=== PATIENT | male | born 1995 | race African-American/Black ===

== ENCOUNTER 2020-05-08 23:07 | Emergency (ER) | payer OTHER, SELFPAY ==
[2020-05-08 23:17] VITALS: BP 163/101; PULSE 87; RESP 17; TEMP 36.6; O2SAT 100
--- NOTE | 2020-05-09 00:38 | PC.NURSE ---
this rn went to pts room to assess, he asked this rn how long he will have to wait. this rn stated i cant give a definitive answer but we do have a full house. pt states well, i've already waited an hour and a half. i think im just going to go to urgent care in the morning. this rn explained to pt that he is able to come back if he feels he needs to. pt ambulated out of facility w/ no difficulties.
== END 2020-05-09 00:38 | disposition left against medical advice (07) ==
DX: Z53.21 Procedure and treatment not carried out due to patient leaving prior to being seen by health care provider (principal)
CPT/HCPCS: 99199

== ENCOUNTER 2020-09-30 06:36 | Emergency (ER) | payer OTHER, SELFPAY ==
[2020-09-30 06:54] VITALS: BP 165/100; PULSE 84; RESP 18; TEMP 36.1; O2SAT 100
--- NOTE | 2020-09-30 07:06 | ED.MALEGU ---
HPI - Male Genitourinary General Chief complaint: Urogenital-Male Stated complaint: UTI Time Seen by Provider: 09/30/20 07:05 Source: patient Mode of arrival: ambulatory Limitations: no limitations History of Present Illness HPI Narrative: Patient presents to the emergency department for evaluation of penile discharge that developed this morning. Patient reports penile discharge is white/yellow in color. He denies dysuria. No frequency. He has not noticed blood. He denies any other lesions. Patient denies fever or back pain. He denies history of testicular pain or current testicular pain. No current lesions. Patient is monogamous with one partner, they do not use barrier protection. Related Data Allergies Allergy/AdvReac Type Severity Reaction Status Date / Time blueberry Allergy Severe Swelling Verified 09/30/20 07:23 of Lip/Tongue/Throat Review of Systems Review of Systems: Narrative: CONSTITUTIONAL: Denies fever CARDIOVASCULAR: Denies chest pain RESPIRATORY: Denies cough or dyspnea. GASTROINTESTINAL: Denies abdominal pain SKIN: Denies rash MUSCULOSKELETAL: Denies back pain NEUROLOGIC: Denies headache FORMERLY [facility], 1928–1983 Past Medical History Medical History (Updated 09/30/20 @ 07:28 by Raquel So MD) Brain aneurysm Hypertension Surgical History Surgical History (Updated 09/30/20 @ 07:25 by Raquel So MD) H/O brain surgery Social History Social History (Updated 09/30/20 @ 07:25 by Raquel So MD) Smoking status: Never smoker Substance use: never Gender identity (if verbalized by the patient): Male Exam Narrative: Exam Narrative: GENERAL: Awake, alert, conversant HEAD: Normocephalic, atraumatic. EYES: PERRLA and EOMI. ENT: Nares clear, no rhinorrhea or epistaxis. Mucous membranes moist. NECK: Supple. CHEST: No respiratory distress, breathing even and non labored HEART: Regular rate, sinus rhythm ABDOMEN:Non distended, non tender : Penis is circumcised. Glans unremarkable. Small amount of white discharge present from urethra. No lesions or vesicles. Testes are non tender to palpation. No edema or erythema. No inguinal lymphadenopathy. EXTREMITIES: Normal range of motion. No edema. SKIN: Warm, dry, no rash. NEURO:No focal deficits. Alert and oriented x3 Course Vital Signs Vital signs: Vital Signs Temperature 36.1 C L 09/30/20 06:54 Pulse Rate 84 09/30/20 06:54 Respiratory Rate 18 09/30/20 06:54 Blood Pressure 165/100 H 09/30/20 06:54 Pulse Oximetry 100 09/30/20 06:54 Temperature 36.1 C L 09/30/20 06:54 Pulse Rate 84 09/30/20 06:54 Respiratory Rate 18 09/30/20 06:54 Blood Pressure 165/100 H 09/30/20 06:54 Pulse Oximetry 100 09/30/20 06:54 MDM - Male Genitourinary MDM Narrative Medical decision making narrative: Patient presented for 1 day of penile discharge. No other lesions. No testicular pain. No fever or back pain. The time of assessment, ABCs are intact, vital signs are stable. Patient is well-appearing. There are no lesions to the penis. No testicular pain. No testicular edema. No inguinal lymphadenopathy. The glans appears normal aside from a small amount of white discharge present. It is not thick but more serous in nature. Patient had chlamydia and gonorrhea testing as well as urinalysis. Patient agreed to empiric treatment for sexually transmitted infection. I did discuss with him about treatment of his partner, however he states he will talk with his partner pending his results. Patient to be discharged home on antibiotics. Differential Diagnosis Differential diagnosis: Likely urinary tract infection, urethritis and other (Slightly transmitted infection, chlamydia, gonorrhea) Medical Records Attestation: I reviewed the patient's medical records. Lab Data Labs: Lab Results 09/30/20 09/30/20 Range/Units 06:47 06:47 Urine Color Yellow (Yellow) Urine Appearance Clear (Clear) Urine pH 6.0 (5.0-9.
[2020-09-30 07:07] LABS: Add Urine Microscopic? YES; Appearance Urine Clear (Clear); Bilirubin Urine Negative (Negative); Blood Urine Negative (Negative); Color Urine Yellow (Yellow); Glucose Urine UA 1+ mg/dL (Negative); Ketones Urine Negative (Negative); Leukocyte Esterase Ur 1+ LEU/UL (Negative); Mucus Urine Rare /lpf; Nitrate Urine Negative (Negative); Protein Urine 1+ mg/dL (Negative); Specific Grav Ur 1.016 (1.001-1.035); Urobilinogen Urine Negative mg/dL (<2.0); WBC Urine 21-30 /hpf
[2020-09-30] MEDS: cefTRIAXone 250 MG VIAL IM (07:42)
[2020-09-30] MEDS: AZITHROMYCIN 250 MG TABLET 1000 MG PO (07:42)
[2020-09-30] MEDS: metroNIDAZOLE 250 MG TABLET 2000 MG PO (07:42)
[2020-09-30 07:49] VITALS: BP 118/75; PULSE 78; RESP 15; O2SAT 98
[2020-09-30] MEDS: LIDOCAINE HCL 1% LOCAL INJ 20 ML VIAL (07:49)
== END 2020-09-30 07:50 | disposition home or self-care (01) ==
PROVIDERS: Emergency Medicine; Emergency Provider Emergency Medicine
DX: N34.2 Other urethritis (principal)
CPT/HCPCS: 81001; 87086; 87491; 87591; 96372; 99283; A9270; J0696

== ENCOUNTER 2020-11-04 15:31 | Emergency (ER) | payer OTHER, SELFPAY ==
[2020-11-04 15:34] VITALS: BP 133/92; PULSE 99; RESP 16; TEMP 37.1; O2SAT 100
[2020-11-04 18:39] LABS: Basophils Absolute Auto 0.1 K/mm3 (0.0-0.1); Eosinophils Absolute Auto 0.1 K/mm3 (0-0.3); Eosinophils Percent Auto 2.4 % (0-4.4); Hematocrit 40.1 % (42.0-52.0); Immature Granulocyte Absolute 0.02 K/mm3 (0.00-0.031); Immature Granulocyte Percent A 0.3 % (0-0.5); Lymphocytes Percent Auto 35.4 % (18.3-44.2); Mean Corpuscular HGB Conc 34.9 g/dl (32-36); Mean Corpuscular Hemoglobin 24.2 pg (26-34); Mean Corpuscular Volume 69.4 fl (80-100); Mean Platelet Volume 9.4 fl (7.4-10.4); Monocytes Percent Auto 16.5 % (2.6-8.5); Neutrophils Absolute Auto 2.6 K/mm3 (1.3-6.7); Neutrophils Percent Auto 44.4 % (45.5-73.1); Platelet Count Result 281 k/mm3 (150-375); Red Blood Count 5.78 M/mm3 (4.6-6.20); Red Cell Distribution Width 12.5 % (11.5-14.5); White Blood Count 5.9 K/mm3 (4.5-10.0)
[2020-11-04 18:48] LABS: Atypical Lymphocytes Present; Platelet Estimate Adequate (Adequate)
[2020-11-04 18:53] LABS: Alanine Aminotransferase 55 U/L (4-50); Albumin Level 4.5 g/dL (3.5-5.1); Alkaline Phosphatase 123 U/L (38-126); Anion Gap 10 mmol/L (8-16); Aspartate Amino Transferase 33 U/L (17-59); Bilirubin,Total 1.2 mg/dL (0.2-1.3); Blood Urea Nitrogen 14 mg/dL (9-20); Calcium 9.8 mg/dL (8.4-10.2); Carbon Dioxide 27 mmol/L (22-30); Chloride 96 mmol/L (98-107); Estimated CRCL calculation 80 ml/min; Estimated Glomerular Filt Rate > 60; Glucose 445 mg/dL (75-110); Potassium 4.1 mmol/L (3.4-5.0); Sodium 133 mmol/L (137-145)
[2020-11-04 18:56] LABS: Amphetamine Screen Urine Negative (Negative); Barbiturate Screen Urine Negative (Negative); Benzodiazepines Screen Urine Negative (Negative); Cannabinoid Screen Urine Negative (Negative); Cocaine Screen Urine Negative (Negative); Methadone Screen Urine Negative (Negative); Opiate Screen Urine Negative (Negative); Phencyclidine Screen Urine Negative (Negative)
[2020-11-04 19:09] VITALS: BP 137/91; PULSE 98; RESP 16; O2SAT 100
--- NOTE | 2020-11-04 19:14 | ED.GENADULT ---
HPI - General Adult General Chief complaint: Headache Stated complaint: headache Time Seen by Provider: 11/04/20 17:43 Source: patient Mode of arrival: ambulatory Limitations: no limitations History of Present Illness HPI narrative: Patient is 25 years old -Citizen Of [place] male presents with intermittent jerking of the mouth when he is stressed or excited. Was seen by his family physician 2 days ago. Patient reports a lot of stress lately, did not start on any medication. Patient is a smoker, denies any alcohol or marijuana intake. Patient denies any fever, chills, nausea, vomiting, headache, vision abnormality, chest pain or shortness of breath. Related Data Allergies Allergy/AdvReac Type Severity Reaction Status Date / Time blueberry Allergy Severe Swelling Verified 11/04/20 15:37 of Lip/Tongue/Throat Review of Systems Review of Systems: Narrative: CONSTITUTIONAL: Denies fever, chills, or sweats. EYES: Denies visual changes, redness, or discharge. ENT: Denies rhinorrhea, congestion, sore throat, or otalgia. CARDIOVASCULAR: Denies chest pain, palpitations, or edema. RESPIRATORY: Denies cough or dyspnea. GASTROINTESTINAL: Denies abdominal pain, nausea, vomiting, or diarrhea. GENITOURINARY: Denies dysuria or hematuria. SKIN: Denies rash or itching. MUSCULOSKELETAL: Denies back pain, joint pain, or myalgia. NEUROLOGIC: Denies headache, numbness, or weakness. PSYCHIATRIC: Denies anxiety or depression. PMFSH Past Medical History Medical History (Updated 11/04/20 @ 20:48 by Osorio Mcmullen MD) Brain aneurysm Hypertension Surgical History Surgical History (Updated 09/30/20 @ 07:25 by Raquel So MD) H/O brain surgery Social History Social History (Updated 09/30/20 @ 07:25 by Raquel So MD) Smoking status: Never smoker Substance use: never Gender identity (if verbalized by the patient): Male Exam Narrative: Exam Narrative: General appearance: Well-developed, well-nourished Skin: Normal color Head: Normocephalic, nontraumatic Eyes: Clear conjunctiva ENT: Oropharynx normal, ears normal, nose normal Neck: Supple, nontender Chest and respiratory: Airway patent, no respiratory distress, no accessory muscle use Heart: Regular rate/rhythm Abdomen: Soft, nontender, no organomegaly, quiet bowel sounds Vascular: Normal peripheral pulses, normal capillary refill. Musculoskeletal: Normal range of motion, nontender back Neurologic: Alert and oriented ?3, SLEEPING CAR CONDUCTOR is normal as tested, no gross motor deficit Course Course Emergency Course: Stable Reevaluation(s) Reevaluation #1: patient refused further evaluation even checking his blood glucose prior to signing AMA. Date: 11/04/20 Time: 21:01 Vital Signs Vital signs: Vital Signs Temperature 37.1 C 11/04/20 15:34 Pulse Rate 99 11/04/20 15:34 Respiratory Rate 16 11/04/20 15:34 Blood Pressure 133/92 H 11/04/20 15:34 Pulse Oximetry 100 11/04/20 15:34 Temperature 37.1 C 11/04/20 15:34 Pulse Rate 98 11/04/20 19:09 Respiratory Rate 16 11/04/20 19:09 Blood Pressure 137/91 H 11/04/20 19:09 Pulse Oximetry 100 11/04/20 19:09 Medical Decision Making [facility] Narrative Medical decision making narrative: Anxiety, depression is my concern. Patient denies any headache or vision abnormality. Labs ordered. Further plan to follow Differential Diagnosis Differential Diagnosis: Anxiety, stress, Vital Signs Vital Signs: Vital Signs Temperature 37.1 C 11/04/20 15:34 Pulse Rate 99 11/04/20 15:34 Respiratory Rate 16 11/04/20 15:34 Blood Pressure 133/92 H 11/04/20 15:34 Pulse Oximetry 100 11/04/20 15:34 Temperature 37.1 C
[2020-11-04 19:32] LABS: Magnesium 1.8 mg/dL (1.6-2.3); Phosphorus 3.8 mg/dL (2.5-4.5)
[2020-11-04] MEDS: SODIUM CHLORIDE 0.9% IV 1,000 ML 999 ML IV CONT (19:34)
[2020-11-04 19:37] LABS: Beta-Hydroxybutyrate/Acetoacetate 0.84 mmol/L (0.02-0.27)
[2020-11-04] MEDS: INSULIN HUMAN REGULAR (*BKC) 100 UNITS/ML 8 UNITS IV PUSH (19:42)
[2020-11-04 19:48] LABS: Alveolar/Arterial O2 Gradient 23.4 mmHg; Base Excess ABG -0.3 mEq/l (+/-2.0); Carboxyhemoglobin 0.5 % THb (0-2.0); Fractional Inspired Oxygen 21 %; HCO3 ABG 23.8 mEq/l (22.0-26.0); Methemoglobin ABG 0.4 %THb (0-1.5); Oxygen Content ABG 19.2 %vol (16.0-22.0); Oxygen Saturation ABG 96.3 % (95.0-100.0); Oxyhemoglobin 95.1 % THb (90.0-100.0); PCO2 ABG 37.2 mmHg (35.0-45.0); PO2 ABG 81.8 mmHg (80.0-100.0); Total Hemoglobin 14.3 g/dL (12.0-18.0); pH ABG 7.424 (7.350-7.450)
[2020-11-04 19:50] LABS: Device ROOM AIR; Modified Allen's Test Pass; Site Drawn RIGHT RADIAL
--- NOTE | 2020-11-04 20:41 | PC.NURSE ---
1930- Pt refusing insulin IV. Re-educated patient for the rationale of the order. Pt states I want to go home and dont want any of this. Dr. Mcmullen informed. Went to bedside to discuss the need for the insulin. Pt agrees to the insulin and IV fluid.
--- NOTE | 2020-11-04 20:44 | PC.NURSE ---
2034- pt calls repeatedly saying i want to go home. I am going to take this IV out. Made Dr. Mcmullen aware. Pt refused blood sugar recheck. Pt signed out AMA and discharged.
== END 2020-11-04 20:51 | disposition left against medical advice (07) ==
PROVIDERS: Emergency Provider Emergency Medicine
DX: R73.9 Hyperglycemia, unspecified (principal); I10 Essential (primary) hypertension; Z86.79 Personal history of other diseases of the circulatory system; F17.200 Nicotine dependence, unspecified, uncomplicated
CPT/HCPCS: 36415; 36600; 80053; 80307; 82010; 82375; 82805; 83050; 83735; 84100; 85025; 96361; 96374; 99284; J1815; J7030

== ENCOUNTER 2020-11-07 23:49 | Inpatient (IN) | payer OTHER, SELFPAY ==
--- NOTE | ~2020-11-07 | CT_ITS ---
EXAMINATION: CT brain wo con EXAM DATE: 11/08/2020 00:19 INDICATION: Seizure. Transient alteration of awareness. TECHNIQUE: Spiral CT of the head was performed without contrast. Axial, coronal and sagittal images were reviewed. The dose-length product (DLP) for this examination was 605.33 mGy-cm. The exposure w as tailored according to patient size, and iterative reconstruction (ASIR) was used as additional dos e reduction technique. There is no prior study for comparison. 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 There is no acute intraparenchymal hemorrhage. No evidence of intrapa renchymal brain mass lesion. No evidence of acute infarction. There is no mass effect or midline sh ift. The ventricles are normal in size. There are no extra-axial collections. There are no acute c alvarial fractures. The orbits are unremarkable. Soft tissue is unremarkable. The visualized sinuse s and mastoid air cells are well aerated. IMPRESSION: 1. No acute intracranial findings. Reviewed, dictated and finalized at location A. UREMENT SPECIALIST
--- NOTE | ~2020-11-07 | XR_ITS ---
EXAMINATION: XR chest 1V EXAM DATE: 11/08/2020 00:23 INDICATION: Transient alteration of awareness. TECHNIQUE: Portable AP frontal chest x-ray was obtained. There is no prior study for comparison. FINDINGS: The lungs are clear. There are no pleural effusions. Cardiac silhouette is prominent but magnified on this AP technique. There is no pneumothorax suspected. The bones and soft tissues are unremarkable. IMPRESSION: No acute cardiopulmonary findings. Reviewed, dictated and finalized at location A. NG MACHINE FEEDER
[2020-11-07 23:53] VITALS: BP 136/59; PULSE 122; RESP 25; TEMP 36; O2SAT 100
[2020-11-08] VITALS (14 sets, daily range): BP systolic 99–135; BP diastolic 58–92; PULSE 83–123; RESP 18–35; TEMP 36.2–38; O2SAT 96–100; BMI 31.4
--- NOTE | 2020-11-08 | ECG_ITS ---
Measurements Intervals [place] Rate: 120 P: 49 MN: 157 QRS: 27 QRSD: 113 T: 5 QT: 327 QTc: 464 Interpretive Statements SINUS TACHYCARDIA INTRAVENTRICULAR CONDUCTION DELAY PEAKED T WAVES- CONSIDER HYPERKALEMIA OR ISCHEMIA NONSPECIFIC T-WAVE ABNORMALITY- INFERIOR LEADS BASELINE ARTIFACT- I, II, III, AVR, AVL, V1, V3, V5-V6 ABNORMAL ECG Electronically Signed On 11-08-2020 6:33:35 TECHNICAL STAFF ENGINEER by Lalo Lopez D.O.
--- NOTE | 2020-11-08 00:03 | ED.GENADULT ---
HPI - General Adult General Chief complaint: Seizure Stated complaint: seizures Time Seen by Provider: 11/08/20 00:01 Source: family, EMS and other (girlfriend) History of Present Illness HPI narrative: Patient is a 25 y/o male brought in by EMS for altered mental status and seizure. EMS reports that patient had multiple seizures and they administered versed. He was also given Ketamine for possible intubation. Patient is currently unresponsive and unable to provide any history. According to patient's girlfriend, he has been having slurred speech and headache for approximately 1 week. She states that she brought him here for evaluation a few days ago, but he signed out against medical advice. He was found to have high blood sugar. She states that he does not have known history of seizure. Mother states that patient has remote history of aneurysm surgery. Related Data Allergies Allergy/AdvReac Type Severity Reaction Status Date / Time blueberry Allergy Severe Swelling Verified 11/04/20 15:37 of Lip/Tongue/Throat Review of Systems Review of Systems: ROS unobtainable: Yes unobtainable due to medical condition PMFSH Past Medical History Medical History Brain aneurysm Surgical History Surgical History (Updated 11/08/20 @ 09:18 by Libby Correa DO) H/O brain surgery Likely due to aneurysm repair around age of 18 Family History Family History Other Unknown family medical history Social History Social History (Updated 11/08/20 @ 09:19 by Libby Correa DO) Social History: The patient's mother reported ER staff that she did not know of the patient having any history of alcohol or drug use. Smoking status: Current every day smoker Alcohol intake: current Substance use: current Substance use type: marijuana Gender identity (if verbalized by the patient): Male Sexual Orientation (if Verbalized by the Patient): Straight or Heterosexual Spiritual care concerns: No Exam Const: General: well developed and ill appearing Orientation/consciousness: patient obtunded HENMT: Head: normocephalic Ears: external ears normal General nose exam: Normal external nose present Eyes: General: appearance normal, both eyes and all related structures Conjunctivae: conjunctivae normal Neck: Neck: normal visual inspection and full ROM Chest: Chest palpation & inspection: normal inspection of the chest and no tenderness Resp: Effort & Inspection: tachypneic Auscultation: clear to auscultation bilaterally Cardio: Rate: tachycardic Rhythm: regular rhythm GI: GI Palp: No abdominal tenderness and Yes Soft to palpation Skin: General skin exam: normal color and turgor normal Neuro: General: patient obtunded and other (no response to painful stimuli) Cognition (Neuro): normal cognition Extrem: General: normal to inspection, full ROM and no pedal edema Psych: Mental Status: other Affect: Blunted affect present Course Reevaluation(s) Reevaluation #1: Rechecked. Patient seem more awake. He is open eyes and moving all 4 extremities spontaneously. He is still sleepy. Date: 11/08/20 Time: :23 Consultations Consultation #1: Discussed with Dr. Lennon, who agrees to accept the patient to ICU and will consult. He also recommends repeat 1 L bolus. Date: 11/08/20 Time: :21 Consultation #2: Discussed with Dr. Correa, who agrees to admit. Date: 11/08/20 Time: 01:56 Vital Signs Vital signs: Vital Signs Temperature 36.0 C L 11/07/20 23:53 Pulse Rate 122 H 11/07/20 23:53 Respiratory Rate 25 H 11/07/20 23:53 Blood Pressure 136/59 L 11/07/20 23:53 Pulse Oximetry 100 11/07/20 23:53 Temperature 36.2 C L 11/08/20 16:00 Pulse Rate 88 11/08/20 16:00 Respiratory Rate 18 11/08/20 16:00 Blood Pressure 129/87 11/08/20 16:00 Pulse Oximetry 100 11/08/20 16:00 Medical
[2020-11-08 00:10] LABS: Alveolar/Arterial O2 Gradient 335.6 mmHg; Base Excess ABG -20.9 mEq/l (+/-2.0); Fractional Inspired Oxygen 100 %; HCO3 ABG 7.4 mEq/l (22.0-26.0); Oxygen Content ABG 19.9 %vol (16.0-22.0); Oxygen Saturation ABG 99.6 % (95.0-100.0); Oxyhemoglobin 98.1 % THb (90.0-100.0); PCO2 ABG 24.8 mmHg (35.0-45.0); PO2 ABG 352.6 mmHg (80.0-100.0); PO2 FiO2 Ratio Arterial Blood 3.53 %; Total Hemoglobin 13.8 g/dL (12.0-18.0)
[2020-11-08 00:13] LABS: Device NON-REBREATHER MASK; Modified Allen's Test Unable to perform; Site Drawn RIGHT RADIAL
[2020-11-08 00:25] LABS: Basophils Absolute Auto 0.1 K/mm3 (0.0-0.1); Basophils Percent Auto 0.5 % (0.2-1.2); Eosinophils Absolute Auto 0.2 K/mm3 (0-0.3); Eosinophils Percent Auto 1.2 % (0-4.4); Hematocrit 40.7 % (42.0-52.0); Hemoglobin 13.4 g/dL (14.0-18.0); Immature Granulocyte Percent A 5.9 % (0-0.5); Lymphocytes Absolute Auto 8.22 K/mm3 (0.9-3.2); Lymphocytes Percent Auto 48.7 % (18.3-44.2); Mean Corpuscular HGB Conc 32.9 g/dl (32-36); Mean Corpuscular Hemoglobin 24.4 pg (26-34); Mean Corpuscular Volume 74.1 fl (80-100); Mean Platelet Volume 9.9 fl (7.4-10.4); Monocytes Absolute Auto 1.1 K/mm3 (0.1-0.6); Monocytes Percent Auto 6.2 % (2.6-8.5); Neutrophils Absolute Auto 6.3 K/mm3 (1.3-6.7); Neutrophils Percent Auto 37.5 % (45.5-73.1); Platelet Count Result 302 k/mm3 (150-375); Red Blood Count 5.49 M/mm3 (4.6-6.20); Red Cell Distribution Width 12.7 % (11.5-14.5); White Blood Count 16.9 K/mm3 (4.5-10.0)
[2020-11-08] MEDS: SODIUM CHLORIDE 0.9% IV 1,000 ML 999 ML IV CONT ×4 (00:26→09:18)
[2020-11-08 00:43] LABS: Albumin Level 4.3 g/dL (3.5-5.1); Alkaline Phosphatase 122 U/L (38-126); Aspartate Amino Transferase 89 U/L (17-59); Bilirubin,Total 1.1 mg/dL (0.2-1.3); Blood Urea Nitrogen 13 mg/dL (9-20); Calcium 9.4 mg/dL (8.4-10.2); Carbon Dioxide < 5 mmol/L (22-30); Chloride 98 mmol/L (98-107); Estimated CRCL calculation 49 ml/min; Estimated Glomerular Filt Rate 47; Glucose 449 mg/dL (75-110); Sodium 136 mmol/L (137-145)
[2020-11-08 00:44] LABS: INR 1.3; Prothrombin Time 16.4 Seconds (11.1-14.7)
[2020-11-08 00:51] LABS: Atypical Lymphocytes Present; Platelet Estimate Adequate (Adequate)
[2020-11-08] MEDS: levETIRAcetam 500MG/NACL 100ML 500 MG/100 ML BAG 400 MG IVPB ×3 (00:51→20:22)
[2020-11-08 00:57] LABS: Alanine Aminotransferase 65 U/L (4-50)
[2020-11-08 01:09] LABS: Lactic Acid Reflex 21.6 mmol/L (0.7-2.1)
[2020-11-08 01:12] LABS: Ethanol < 10 mg/dL (<10)
[2020-11-08 01:17] LABS: Magnesium 3.6 mg/dL (1.6-2.3); Phosphorus 9.5 mg/dL (2.5-4.5)
[2020-11-08 01:25] LABS: Beta-Hydroxybutyrate/Acetoacetate 0.66 mmol/L (0.02-0.27)
[2020-11-08 01:34] LABS: Add Urine Microscopic? YES; Appearance Urine Cloudy (Clear); Bilirubin Urine Negative (Negative); Blood Urine 2+ (Negative); Color Urine Yellow (Yellow); Glucose Urine UA 3+ mg/dL (Negative); Ketones Urine 1+ mg/dL (Negative); Leukocyte Esterase Ur Negative LEU/UL (Negative); Mucus Urine Rare /lpf; Nitrate Urine Negative (Negative); Protein Urine 3+ mg/dL (Negative); Specific Grav Ur 1.016 (1.001-1.035); Squamous Epithelial Cell Urine Rare /hpf (Few); Urobilinogen Urine Negative mg/dL (<2.0); WBC Urine 16-20 /hpf
[2020-11-08 01:51] LABS: Amphetamine Screen Urine Negative (Negative); Barbiturate Screen Urine Negative (Negative); Benzodiazepines Screen Urine Positive (Negative); Cannabinoid Screen Urine Negative (Negative); Cocaine Screen Urine Negative (Negative); Methadone Screen Urine Negative (Negative); Opiate Screen Urine Negative (Negative); Phencyclidine Screen Urine Negative (Negative)
[2020-11-08] MEDS: INSULIN HUMAN REGULAR (*BKC) 100 UNITS in SODIUM CHLORIDE 0.9% IV 99 ML 7.8 UNITS IV CONT (01:55)
[2020-11-08 02:05] LABS: Glucose Point of Care 448 (65-105)
[2020-11-08 02:48] LABS: Anion Gap 19 mmol/L (8-16); Blood Urea Nitrogen 16 mg/dL (9-20); Calcium 9.1 mg/dL (8.4-10.2); Carbon Dioxide 15 mmol/L (22-30); Chloride 101 mmol/L (98-107); Estimated CRCL calculation 60 ml/min; Estimated Glomerular Filt Rate 59; Glucose 504 mg/dL (75-110); Potassium 4.3 mmol/L (3.4-5.0); Sodium 135 mmol/L (137-145)
[2020-11-08] MEDS: INSULIN HUMAN REGULAR (*BKC) 100 UNITS in SODIUM CHLORIDE 0.9% IV 99 ML 9.1 UNITS IV CONT (03:00)
[2020-11-08 03:19] LABS: Reflex Lactic Acid Yes or No Add Lactic
[2020-11-08] MEDS: LORazepam INJ (*CRX) 2 MG/ML VIAL IV PUSH (03:40)
[2020-11-08 04:14] LABS: Glucose Point of Care 394 (65-105)
[2020-11-08 04:29] LABS: Anion Gap 13 mmol/L (8-16); Blood Urea Nitrogen 17 mg/dL (9-20); Calcium 8.7 mg/dL (8.4-10.2); Carbon Dioxide 19 mmol/L (22-30); Chloride 109 mmol/L (98-107); Estimated CRCL calculation 61 ml/min; Estimated Glomerular Filt Rate > 60; Glucose 225 mg/dL (75-110); Potassium 3.4 mmol/L (3.4-5.0); Sodium 141 mmol/L (137-145)
[2020-11-08 04:40] LABS: Lactic Acid 3.6 mmol/L (0.7-2.1)
[2020-11-08 04:54] LABS: Creatine Kinase 810 U/L (55-170)
[2020-11-08] MEDS: KCL 20 MEQ/D5/0.45% SOD CHL 1,000 ML 150 ML IV CONT (05:08)
[2020-11-08 05:54] LABS: Glucose Point of Care 146 (65-105)
[2020-11-08 06:26] LABS: Glucose Point of Care 140 (65-105)
[2020-11-08 08:10] LABS: Glucose Point of Care 192 (65-105)
--- NOTE | 2020-11-08 08:11 | ADMGEN ---
This patient, Phoenix Landry, was admitted to Intensive Care Unit-9. Patient/family oriented to hospital policies and general routines including ID bracelet, bed and alarms, visiting hours, pain management, procedures, bathroom and other care routines, personal items, smoking policy, room service/diet, and visiting hours. Information on how to activate the Rapid Response Team has been discussed. Patient/Family are encouraged to report perceived risks to care and to ask questions if they do not understand what they are told or what they should do.
--- NOTE | 2020-11-08 09:07 | PM.IMHP ---
H&P: HPI History of Present Illness Date/Time: 11/08/20 01:30 Chief Complaint: Seizure Narrative: Phoenix Landry is a 25 year old male who was diagnosed with diabetes 11/04/2020 on a visit to ER who left AMA who presented back to the ER after having a seizure at home. The patient was watching TV with his girlfriend when he became unresponsive. EMS was called. When EMS arrived at the home the patient had multiple witness seizures. He was given 125 mg of ketamine and 9 of Versed in the field. The patient's girlfriend reported the patient was having headache and slurred speech for 1 week. He had been to the ER on 11/04/2020 for intermittent jerking of his mouth when he was stressed or excited. He went to his primary care physician on the for the same complaints. He was found have glucoses of 445 at that time. He refused to stay in the hospital and was discharged against medical advice. He was given a prescription for glyburide/metformin. The patient does not have any known history of seizures. On CT scan demonstrated evidence of an old right temporal craniotomy. The patient's mother reports that the patient was in penitentiary when he was around 18 years old in the found aneurysm at that time. He underwent surgical correction of the aneurysm. 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 There was no acute process on CT scan. Per ER report the patient was more awake in the ER. By the time he arrived to the ICU the patient was writhing around in the bed and pulling at IVs. He was stating that he needed to urinate but was unable to do so. A Ship[place] catheter was placed. The patient was placed in restraints as he had pulled out his IVs. He was given 2 mg of Ativan. At the time my evaluation the patient was sleeping soundly. He was not following commands but had no evidence of active seizure activity. He did have trauma to his lower lip. Interestingly enough the patient had been to the ER September 30 for penile discharge and had a UA performed at that time that only demonstrated 1+ glucose. He did not have any electrolyte panels performed at that time at the end no other complaints. Review of Systems Review of Systems: ROS unobtainable: Yes unobtainable due to medical condition (Postictal state) PMFSH Past Medical History Medical History Brain aneurysm Surgical History Surgical History (Updated 11/08/20 @ 09:18 by Libby Correa DO) H/O brain surgery Likely due to aneurysm repair around age of 18 Family History Family History Other Unknown family medical history Social History Social History (Updated 11/08/20 @ 09:19 by Libby Correa DO) Social History: The patient's mother reported ER staff that she did not know of the patient having any history of alcohol or drug use. Smoking status: Current every day smoker Alcohol intake: current Substance use: current Substance use type: marijuana Gender identity (if verbalized by the patient): Male Sexual Orientation (if Verbalized by the Patient): Straight or Heterosexual Spiritual care concerns: No Meds Home Medications and Allergies Home Medications Medication Instructions Recorded Confirmed Type glyburide-metformin 1 tablet PO BID #30 tablet 11/04/20 11/08/20 Rx Allergies Allergy/AdvReac Type Severity Reaction Status Date / Time blueberry Allergy Severe Swelling Verified 11/04/20 15:37 of Lip/Tongue/Throat Vital Signs Vital Signs - 24 hr 11/07/20 23:53 11/08/20 00:01 11/08/20 00:52 Temperature 96.8 F L Pulse Rate 122 H 123 H Respiratory Rate 25 H 23 H Blood Pressure 136/59 L 135/84 Pulse Oximetry 100 100 100 11/08/20 02:19 11/08/20 02:20 11/08/20 03:04 Temperature 97.2 F L Pulse Rate 108 H 102 H Respiratory Rate 20 20 Blood Pressure 118/72
[2020-11-08 09:17] LABS: Glucose Point of Care 215 (65-105)
[2020-11-08 09:19] LABS: Anion Gap 8 mmol/L (8-16); Blood Urea Nitrogen 16 mg/dL (9-20); Calcium 7.9 mg/dL (8.4-10.2); Carbon Dioxide 23 mmol/L (22-30); Chloride 109 mmol/L (98-107); Estimated CRCL calculation 74 ml/min; Estimated Glomerular Filt Rate > 60; Glucose 198 mg/dL (75-110); Potassium 3.7 mmol/L (3.4-5.0); Sodium 140 mmol/L (137-145)
[2020-11-08] MEDS: dexmedeTOMIDine 400 MCG/100 ML 400 MCG/100 ML BAG IV CONT (09:19)
--- NOTE | 2020-11-08 09:46 | WPDCNINT ---
Assessment and Plan Assessment and plan (1) Encephalopathy: Code(s): G93.40 - Encephalopathy, unspecified Status: Acute Assessment and Plan: Acute encephalopathy, likely related to seizure, postictal state, hyperglycemia and DKA, also severe metabolic acidosis -will obtain ammonia level -discontinue Precedex (2) Seizure: Code(s): R56.9 - Unspecified convulsions Status: Acute Assessment and Plan: Patient with multiple seizures according to EMS report -patient has been Keppra -neurology has been consulted -EEG for this morning (3) DKA (diabetic ketoacidoses): Code(s): E11.10 - Type 2 diabetes mellitus with ketoacidosis without coma Status: Acute Assessment and Plan: Patient with diabetic ketoacidosis, given 2 L IV fluid bolus in the ED started on insulin infusion transferred the ICU for further management. -will give additional IV fluid bolus here in the ICU since lactic acid remains elevated -will transition to long-acting insulin and sliding scale insulin once anion gap closes (4) Lactic acidosis: Code(s): E87.2 - Acidosis Status: Acute Assessment and Plan: Elevated lactic acid likely related to seizures were metabolic acidosis (5) Diabetes mellitus, new onset: Code(s): E11.9 - Type 2 diabetes mellitus without complications Status: Acute Assessment and Plan: New onset diabetes, presented with DKA, altered mental status encephalopathy, seizures Hemoglobin A1c is 12.0 -once patient is more awake will have diabetic take educator and rod greaser evaluate the patient (6) Acute renal injury: Code(s): N17.9 - Acute kidney failure, unspecified Status: Acute Assessment and Plan: Patient with acute kidney injury likely related to dehydration, DKA -will give additional IV fluid bolus -creatinine trending down, urine output improving -renal function, electrolytes and urine output Additional Plan Code status: Full code Critical care time spent: 43 minutes Due to a high probability of clinically significant, life threatening deterioration, the patient required my highest level of preparedness to intervene emergently and I personally spent this critical care time directly and personally managing the patient. This critical care time included obtaining a history; examining the patient; pulse oximetry; ordering and review of studies; arranging urgent treatment with development of a management plan; evaluation of patient's response to treatment; frequent reassessment; and discussions with other providers. It was exclusive of separately billable procedures and treating other patients and teaching time. Please see Assessment and Plan section and the rest of the note for further information on patient assessment and treatment Paper Hanger Consult Note Consult date: 11/08/20 Time Seen: 07:07 Reason for consult: Diabetic ketoacidosis, seizures lactic acidosis HPI: Phoenix Landry is a 25 year old male with history of brain diagnosed with diabetes on 12/03/2020 and a visit to the which she left AMA presented ED via EMS on 11/08/2020 at midnight with altered mental status and seizures. According the EMS reports patient had multiple seizures in the to administer Versed. They also gave him ketamine for possible intubation patient was having headaches with slurring of speech for almost a week. Patient does not have any history of known seizures. CT scan of the head in the ER showed Old right temporal craniotomy. Was secondary to surgical correction of and aneurysm. No acute intracranial process seen on CT scan. In the ER patient was more awake according to ER notes. Overnight in the ICU patient has been writhing around in bed pulling IVs. Patient was started on Precedex infusion. Patient was also found to have elevated blood sugars, significant metabolic acidosis on ABGs and lactic acidosis. Patient was given 2 L IV fluid bolus in the ER, sta
[2020-11-08 10:01] LABS: Glucose Point of Care 177 (65-105)
[2020-11-08 11:01] LABS: Glucose Point of Care 123 (65-105)
[2020-11-08 12:25] LABS: Glucose Point of Care 141 (65-105)
[2020-11-08 13:11] LABS: Glucose Point of Care 137 (65-105)
[2020-11-08 13:19] LABS: Anion Gap 4 mmol/L (8-16); Blood Urea Nitrogen 15 mg/dL (9-20); Calcium 7.6 mg/dL (8.4-10.2); Carbon Dioxide 24 mmol/L (22-30); Chloride 113 mmol/L (98-107); Estimated CRCL calculation 70 ml/min; Estimated Glomerular Filt Rate > 60; Glucose 118 mg/dL (75-110); Potassium 4.4 mmol/L (3.4-5.0); Sodium 141 mmol/L (137-145)
--- NOTE | 2020-11-08 13:28 | WPDNEUROLOGY ---
Neurology EEG Report TEST EEG DIAGNOSIS seizures CONDITION OF RECORDING unresponsive CLINICAL HISTORY patient was brought to the emergency room having seizures. Family reported he has been having slurred speech and headache for about a week. Patient became unresponsive after the seizures and remains unresponsive EEG DESCRIPTION bihemispheric medium voltage 2 to 3 hertz per 2nd delta activity seen during the initial part of the tracing super imposed by low-voltage 15 to 21 hertz per 2nd beta and admixed with regular EKG artifact. Non paroxysmal. Nonfocal. Nonlateralizing. IMPRESSION Abnormal record due to the presence of bihemispheric delta activity during wakefulness.throughout the tracing regular EKG artifact noted. there is no evidence of paroxysmal discharge throughout the tracing .these abnormalities could be suggestive of underlying organic or metabolic encephalopathy or postictal state. clinical correlation recommended
[2020-11-08] MEDS: INSULIN GLARGINE (*BKC) 100 UNITS/ML 25 UNITS SUB-Q (14:15)
[2020-11-08 14:20] LABS: Glucose Point of Care 144 (65-105)
--- NOTE | 2020-11-08 15:59 | PC.NURSE ---
NOTIFIED CORRY BAEZ OF DKA ADMISSION.
[2020-11-08 17:55] LABS: Glucose Point of Care 174 (65-105)
[2020-11-08 18:13] LABS: SARS-CoV-2 RNA PCR Negative
[2020-11-08 20:32] LABS: Glucose Point of Care 174 (65-105)
--- NOTE | 2020-11-08 21:36 | PC.NURSE ---
Pt received from ICU. Report received from Leticia Jacques Pt alert and oriented. Pt instructed refrigeration engineer light and room orientation.
--- NOTE | 2020-11-08 21:40 | PC.NURSE ---
This patient, Phoenix Landry, was transferred to [[id number] ] on 11/08/20 at 2130. Personal belongings sent with patient. Report given to [ Mildred Chiu rn]. Appropriate documentation sent with patient.
[2020-11-09 06:19] VITALS: BP 128/71; PULSE 110; RESP 16; TEMP 36.8; O2SAT 100
[2020-11-09] MEDS: INSULIN GLARGINE (*BKC) 100 UNITS/ML 25 UNITS SUB-Q (07:17)
[2020-11-09] MEDS: INSULIN ASPART (*BKC) 100 UNITS/ML SUB-Q ×3 (07:18→18:24)
[2020-11-09 07:23] LABS: Glucose Point of Care 264 (65-105)
[2020-11-09 08:17] VITALS: RESP 16; O2SAT 100
[2020-11-09] MEDS: levETIRAcetam 500MG/NACL 100ML 500 MG/100 ML BAG 400 MG IVPB ×2 (08:17→21:23)
--- NOTE | 2020-11-09 09:14 | WPDNEURCNPN ---
Assessment and Plan Assessment and plan (1) DKA (diabetic ketoacidoses): Code(s): E11.10 - Type 2 diabetes mellitus with ketoacidosis without coma Status: Acute (2) Diabetes mellitus, new onset: Code(s): E11.9 - Type 2 diabetes mellitus without complications Status: Acute (3) Seizure: Code(s): R56.9 - Unspecified convulsions Status: Acute Additional Plan newly diagnosed diabetic with seizure ,eeg abnormal that is post ictal, already on keppra ,will need client service professional care for DM/SD Consult date: 11/09/20 Time Seen: 09:00 HPI: Phoenix Landry is a 25 year old male Admitted to the hospital for the complaints of seizure. Patient was reportedly diagnosed to be diabetic on November 04, 2020 while he visited the emergency room but unfortunately left against medical advise and then presented again with seizure. As per the information available he was watching TV with his girlfriend and became unresponsive EMS were called to the scene and they witnessed multiple seizures he was given ketamine and Versed in the field patient's girlfriend reported he was complaining of headache and slurred speech for 1 week duration in the emergency room he was noted to have intermittent jerking of his mouth he had gone to the primary care physician for the same complaint he was found to have glucose of 445 and he refused to stay in the hospital and was discharged against medical advise though he was given prescription for glyburide and metformin patient does not have previous history of seizure disorder though CT scan demonstrated an old right temporal craniotomy and his mother reported that he was not present when he was around 18 years of age and was found aneurysm at that particular time he underwent surgical correction radiology explain 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 CT head as mentioned before documented the old right temporal craniotomy without evidence of bleed or infarction or midline shift and also ventricles of normal size. at present is saving Keppra 500 mg q.12 hours intravenously in addition to insulin 25units subcu daily and 4 to 8 units subcu daily t.i.d. with his schedule meals. routine labs consistent with the hyperglycemia and creatinine is 1.5 with BUN of 15 and all the cultures are pending. Review of Systems Review of Systems: All systems reviewed & are unremarkable except as noted in HPI and below PMFSH Past Medical History Medical History Brain aneurysm Surgical History Surgical History H/O brain surgery Likely due to aneurysm repair around age of 18 Family History Family History Other Unknown family medical history Social History Social History Social History: The patient's mother reported ER staff that she did not know of the patient having any history of alcohol or drug use. Smoking status: Current every day smoker Alcohol intake: current Substance use: current Substance use type: marijuana Gender identity (if verbalized by the patient): Male Sexual Orientation (if Verbalized by the Patient): Straight or Heterosexual Spiritual care concerns: No Meds Home Medications and Allergies Home Medications Medication Instructions Recorded Confirmed Type glyburide-metformin 1 tablet PO BID #30 tablet 11/04/20 11/08/20 Rx Allergies Allergy/AdvReac Type Severity Reaction Status Date / Time blueberry Allergy Severe Swelling Verified 11/04/20 15:37 of Lip/Tongue/Throat Vital Signs Vital Signs - 24 hr 11/08/20 09:19 01
[2020-11-09 11:56] LABS: Glucose Point of Care 231 (65-105)
[2020-11-09 13:00] VITALS: BMI 35.8
--- NOTE | 2020-11-09 13:12 | PM.IMPN ---
Progress Note: A&P Assessment and Plan (1) Seizure: Code(s): R56.9 - Unspecified convulsions Status: Acute Assessment and Plan: EEG, on iv Keppra, Neurology consultation see notes. (2) DKA, type 1: Qualifiers: Diabetes mellitus complication detail: with coma Qualified Code(s): E10.11 - Type 1 diabetes mellitus with ketoacidosis with coma Code(s): E10.10 - Type 1 diabetes mellitus with ketoacidosis without coma Status: Deleted Assessment and Plan: Lantus at night, sugars are 118. Accucheck, SSI, DM education and DM diet. (3) Diabetes mellitus, new onset: Code(s): E11.9 - Type 2 diabetes mellitus without complications Status: Acute Assessment and Plan: New diagnosis (4) Dehydration: Code(s): E86.0 - Dehydration Status: Acute Assessment and Plan: Improved. Continue fluids (5) Lactic acidosis: Code(s): E87.2 - Acidosis Status: Resolved (6) Acute renal injury: Code(s): N17.9 - Acute kidney failure, unspecified Status: Acute Assessment and Plan: Creat is 1.8, continue to monitor continue hydration Subjective Date/time seen: 11/09/20 13:12 Interval history: 25 year old male who was diagnosed with diabetes 11/04/2020 on a visit to ER who left AMA who presented back to the ER after having a seizure at home. Newly diagnosed DM, ? seizure disorder. Seen by ICU MD and Neurology MD. Review of Systems Review of Systems: All systems reviewed & are unremarkable except as noted in HPI and below Exam Const: General: cooperative and healthy appearing; No in distress Nutritional Appearance: overweight Orientation/consciousness: oriented to person HENMT: Head: normal to inspection Resp: Effort & Inspection: no respiratory distress Auscultation: no rhonchi and no wheezes Cardio: Rate: regular rate Rhythm: regular rhythm GI: Inspection: normal to inspection GI Palp: No abdominal tenderness, No Guarding due to palpation present (GI) and No Hepatomegaly present Auscultation: normal bowel sounds Neuro: General: oriented to person Objective Data Vital Signs Vital Signs: Vital Signs - 24 hr 11/08/20 14:00 11/08/20 16:00 11/08/20 20:00 Temperature 36.2 C L 36.7 C Pulse Rate 83 88 84 Respiratory Rate 26 H 18 20 Blood Pressure 119/84 129/87 133/92 H Pulse Oximetry 100 100 98 11/09/20 06:19 11/09/20 08:17 Temperature 36.8 C Pulse Rate 110 H Respiratory Rate 16 16 Blood Pressure 128/71 Pulse Oximetry 100 100 Intake/Output Intake/Output: Intake & Output 11/06/20 11/07/20 11/08/20 11/09/20 23:59 23:59 23:59 23:59 Intake Total 3000 940 Output Total 1850 2150 Balance 1150 -1210 Meds/Results Medications: Active Medications Generic Name Dose Route Start Last Admin Trade Name Freq PRN Reason Stop Dose Admin Dextrose 12.5 gm 11/08/20 13:53 Dextrose 50% 25 Gm/50 Ml Syringe IV PUSH PRN PRN Hypoglycemia Protocol Glucagon 1 mg 11/08/20 13:53 Glucagon For Inj 1 Mg Vial IM PRN PRN Hypoglycemia Protocol Glucose 15 gm 11/08/20 13:53 Glucose Oral Gel 15 Gm Of Glucse In 37.5 Gm Tube PO PRN PRN Hypoglycemia Protocol Levetiracetam 500 mg in 100 mls @ 400 mls/hr 11/08/20 10:00 11/09/20 08:35 Keppra Iv IVPB Infused Q12HR CRYS Infusion Dextrose 1,000 mls @ 100 mls/hr 11/08/20 13:53 Dextrose 5% 1,000 Ml IVPB PRN PRN Hypoglycemia Protocol Insulin Aspart 4 - 8 units 11/08/20 17:00 11/09/20 07:18 Insulin Aspart (*Bkc) 100 Units/Ml SUB-Q 5 units TIDWM CRYS Administration Protocol Insulin Glargine 25 units 11/08/20 13:55 11/09/20 07:17 Insulin Glargine (*Bkc) 100 Units/Ml SUB-Q 25 units DAILY CRYS Administration Radiology Results: ITS Impressions Head CT 11/08/20 07:04 IMPRESSION: 1. No acute intracranial findings. Chest X-Ray 11/08/20 07:0
[2020-11-09] MEDS: SODIUM CHLORIDE 0.9% IV 1,000 ML 100 ML IV CONT (14:07)
[2020-11-09 15:04] VITALS: BP 148/85; PULSE 110; RESP 20; TEMP 37.1; O2SAT 100
[2020-11-09 18:02] LABS: Glucose Point of Care 216 (65-105)
[2020-11-09 21:40] VITALS: BP 138/83; PULSE 104; RESP 16; TEMP 36.9; O2SAT 100
[2020-11-09 22:01] LABS: Glucose Point of Care 202 (65-105)
[2020-11-10 05:52] LABS: Anion Gap 9 mmol/L (8-16); Blood Urea Nitrogen 7 mg/dL (9-20); Calcium 8.6 mg/dL (8.4-10.2); Carbon Dioxide 23 mmol/L (22-30); Chloride 104 mmol/L (98-107); Estimated CRCL calculation 73 ml/min; Estimated Glomerular Filt Rate > 60; Glucose 248 mg/dL (75-110); Potassium 3.3 mmol/L (3.4-5.0); Sodium 136 mmol/L (137-145)
[2020-11-10 06:00] VITALS: BP 136/84; PULSE 94; RESP 16; TEMP 36.7; O2SAT 100
[2020-11-10 07:25] LABS: Glucose Point of Care 293 (65-105)
[2020-11-10] MEDS: INSULIN GLARGINE (*BKC) 100 UNITS/ML 25 UNITS SUB-Q (08:14)
[2020-11-10] MEDS: INSULIN ASPART (*BKC) 100 UNITS/ML SUB-Q ×3 (08:18→16:55)
[2020-11-10] MEDS: levETIRAcetam 500MG/NACL 100ML 500 MG/100 ML BAG 400 MG IVPB (08:21)
[2020-11-10] MEDS: SODIUM CHLORIDE 0.9% IV 1,000 ML 100 ML IV CONT ×2 (09:42→22:49)
[2020-11-10 09:44] VITALS: RESP 16; O2SAT 100
[2020-11-10 10:43] VITALS: O2SAT 97
--- NOTE | 2020-11-10 11:06 | PCDIET ---
Followed up with patient re: diabetic diet. Patient denies questions or concerns regarding diet. Says he feels comfortable with diet and medications on discharge and understands importance of keeping blood sugars controlled. Encouraged patient to contact RD at number provided, should questions or concerns arise.
[2020-11-10 11:15] LABS: Prolactin 2.6 ng/mL (***)
[2020-11-10 11:26] LABS: Glucose Point of Care 248 (65-105)
--- NOTE | 2020-11-10 11:42 | WPDNEUROPN ---
Progress Note: A&P Assessment and Plan (1) DKA (diabetic ketoacidoses): Code(s): E11.10 - Type 2 diabetes mellitus with ketoacidosis without coma Status: Acute (2) Diabetes mellitus, new onset: Code(s): E11.9 - Type 2 diabetes mellitus without complications Status: Acute Additional Plan stable will switch over the Keppra to p.o. Exam Const: General: cooperative, no acute distress, well developed, alert and awake Nutritional Appearance: well nourished Orientation/consciousness: patient oriented x3 Limitations: no limitations HENMT: Head: normocephalic Ears: hearing grossly normal bilaterally General nose exam: Normal external nose present and No nasal discharge present Face and sinus: normal facial exam Mouth: Yes Normal oral and palatal mucosa present Eyes: General: appearance normal, both eyes and all related structures Alignment and Position: alignment normal Periorbital: periorbital findings normal Eyelids: eyelids normal Sclera: sclerae normal Cornea: corneas normal Pupils: Equal, round and reactive pupils present Neck: Neck: full ROM Resp: Effort & Inspection: able to speak in complete sentences Cardio: Jugular venous distension: no JVD Rate: regular rate Rhythm: regular rhythm GI: Auscultation: normal bowel sounds Skin: General skin exam: no rashes or lesions noted Neuro: General: patient oriented x3 Cranial nerves: Yes CN's II-XII intact bilaterally Cognition (Neuro): normal cognition Speech: normal speech Motor exam (neuro): 5/5 motor strength present throughout Sensory Exam: normal sensation Deep tendon reflexes (DTR's): Right triceps reflex intensity grade: 1+, Left triceps reflex intensity grade: 1+, Rt Biceps (C5, C6): 1+, Left biceps reflex intensity grade: 1+, Right brachioradialis reflex intensity grade: 1+, Left brachioradialis reflex intensity grade: 1+, Right patellar reflex intensity grade: 1+, Left patellar reflex intensity grade: 1+, Right ankle reflex intensity grade: 1+ and Left ankle reflex intensity grade: 1+ Plantar Reflex Responses: downgoing: bilateral Coordination: [id number] test normal Psych: Appearance: grossly normal Objective Data Vital Signs Vital Signs: Vital Signs - 24 hr 11/09/20 15:04 11/09/20 21:40 11/10/20 06:00 Temperature 37.1 C 36.9 C 36.7 C Pulse Rate 110 H 104 H 94 Respiratory Rate 20 16 16 Blood Pressure 148/85 H 138/83 136/84 Pulse Oximetry 100 100 100 11/10/20 09:44 11/10/20 10:43 Temperature Pulse Rate Respiratory Rate 16 Blood Pressure Pulse Oximetry 100 97 Intake/Output Intake/Output: Intake & Output 11/07/20 11/08/20 11/09/20 11/10/20 23:59 23:59 23:59 23:59 Intake Total 3000 2240 1840 Output Total 1850 4150 450 Balance 1150 -1910 1390 Meds/Results Medications: Active Medications Generic Name Dose Route Start Last Admin Trade Name Freq PRN Reason Stop Dose Admin Dextrose 12.5 gm 11/08/20 13:53 Dextrose 50% 25 Gm/50 Ml Syringe IV PUSH PRN PRN Hypoglycemia Protocol Enoxaparin Sodium 40 mg 11/10/20 09:00 Enoxaparin 40 Mg/0.4 Ml Syringe SUB-Q DAILY CRYS Glucagon 1 mg 11/08/20 13:53 Glucagon For Inj 1 Mg Vial IM PRN PRN Hypoglycemia Protocol Glucose 15 gm 11/08/20 13:53 Glucose Oral Gel 15 Gm Of Glucse In 37.5 Gm Tube PO PRN PRN Hypoglycemia Protocol Levetiracetam 500 mg in 100 mls @ 400 mls/hr 11/08/20 10:00 11/10/20 08:35 Keppra Iv IVPB Infused Q12HR CRYS Infusion Dextrose 1,000 mls @ 100 mls/hr 11/08/20 13:53 Dextrose 5% 1,000 Ml IVPB PRN PRN Hypoglycemia Protocol Sodium Chloride 1,000 mls @ 100 mls/hr 11/09/20 13:20 11/10/20 09:42 Normal Saline Iv IV CONT 100 mls/hr .Q10H CRYS Administration Insulin Aspart 4 - 8 units 11/08/20 17:00 11/10/20 08:18 Insulin Aspart (*Bkc) 100 Units/Ml SUB-Q 5 units TIDWM CRYS Administration Protocol Insulin Glargi
[2020-11-10] MEDS: ENOXAPARIN 40 MG/0.4 ML SYRINGE SUB-Q (12:12)
--- NOTE | 2020-11-10 13:51 | PM.IMPN ---
Progress Note: A&P Assessment and Plan (1) Seizure: Code(s): R56.9 - Unspecified convulsions Status: Acute Assessment and Plan: EEG, on iv Keppra, Neurology consultation see notes. (2) DKA, type 1: Qualifiers: Diabetes mellitus complication detail: with coma Qualified Code(s): E10.11 - Type 1 diabetes mellitus with ketoacidosis with coma Code(s): E10.10 - Type 1 diabetes mellitus with ketoacidosis without coma Status: Deleted Assessment and Plan: Lantus at night, sugars are 118. Accucheck, SSI, DM education and DM diet. Hopeful DC ama. (3) Diabetes mellitus, new onset: Code(s): E11.9 - Type 2 diabetes mellitus without complications Status: Acute Assessment and Plan: New diagnosis (4) Dehydration: Code(s): E86.0 - Dehydration Status: Acute Assessment and Plan: Improved. (5) Lactic acidosis: Code(s): E87.2 - Acidosis Status: Resolved (6) Acute renal injury: Code(s): N17.9 - Acute kidney failure, unspecified Status: Acute Assessment and Plan: Creat is 1.3, continue fluids. Subjective Date/time seen: 11/10/20 13:51 Interval history: 25 year old male who was diagnosed with diabetes 11/04/2020 on a visit to ER who left AMA who presented back to the ER after having a seizure at home. Newly diagnosed DM, ? seizure disorder. Pt to do better with his diabetes. Review of Systems Review of Systems: All systems reviewed & are unremarkable except as noted in HPI and below Exam Const: General: cooperative and healthy appearing; No in distress Nutritional Appearance: overweight Orientation/consciousness: oriented to person HENMT: Head: normal to inspection Resp: Effort & Inspection: no respiratory distress Auscultation: no rhonchi and no wheezes Cardio: Rate: regular rate Rhythm: regular rhythm GI: Inspection: normal to inspection Auscultation: normal bowel sounds Neuro: General: oriented to person Objective Data Vital Signs Vital Signs: Vital Signs - 24 hr 11/09/20 15:04 11/09/20 21:40 11/10/20 06:00 Temperature 37.1 C 36.9 C 36.7 C Pulse Rate 110 H 104 H 94 Respiratory Rate 20 16 16 Blood Pressure 148/85 H 138/83 136/84 Pulse Oximetry 100 100 100 11/10/20 09:44 11/10/20 10:43 Temperature Pulse Rate Respiratory Rate 16 Blood Pressure Pulse Oximetry 100 97 Intake/Output Intake/Output: Intake & Output 11/07/20 11/08/20 11/09/20 11/10/20 23:59 23:59 23:59 23:59 Intake Total 3000 2240 2080 Output Total 1850 4150 450 Balance 1150 -1910 1630 Meds/Results Medications: Active Medications Generic Name Dose Route Start Last Admin Trade Name Freq PRN Reason Stop Dose Admin Dextrose 12.5 gm 11/08/20 13:53 Dextrose 50% 25 Gm/50 Ml Syringe IV PUSH PRN PRN Hypoglycemia Protocol Enoxaparin Sodium 40 mg 11/10/20 09:00 11/10/20 12:12 Enoxaparin 40 Mg/0.4 Ml Syringe SUB-Q 40 mg DAILY CRYS Administration Glucagon 1 mg 11/08/20 13:53 Glucagon For Inj 1 Mg Vial IM PRN PRN Hypoglycemia Protocol Glucose 15 gm 11/08/20 13:53 Glucose Oral Gel 15 Gm Of Glucse In 37.5 Gm Tube PO PRN PRN Hypoglycemia Protocol Dextrose 1,000 mls @ 100 mls/hr 11/08/20 13:53 Dextrose 5% 1,000 Ml IVPB PRN PRN Hypoglycemia Protocol Sodium Chloride 1,000 mls @ 100 mls/hr 11/09/20 13:20 11/10/20 09:42 Normal Saline Iv IV CONT 100 mls/hr .Q10H CRYS Administration Insulin Aspart 4 - 8 units 11/08/20 17:00 11/10/20 11:43 Insulin Aspart (*Bkc) 100 Units/Ml SUB-Q 4 units TIDWM CRYS Administration Protocol Insulin Glargine 25 units 11/08/20 13:55 11/10/20 08:14 Insulin Glargine (*Bkc) 100 Units/Ml SUB-Q 25 units DAILY CRYS Administration Levetiracetam 500 mg 11/10/20 21:00 Levetiracetam 500 Mg Tablet PO Q12HR CRYS Radiology Results: ITS Impressi
[2020-11-10 14:43] VITALS: BP 147/79; PULSE 89; RESP 14; TEMP 37.2; O2SAT 100
[2020-11-10 16:37] LABS: Glucose Point of Care 219 (65-105)
[2020-11-10 20:00] VITALS: PULSE 93; RESP 16; O2SAT 100
[2020-11-10] MEDS: levETIRAcetam 500 MG TABLET PO (20:24)
[2020-11-10 20:32] LABS: Glucose Point of Care 159 (65-105)
[2020-11-10 21:03] VITALS: BP 140/82; PULSE 93; RESP 16; TEMP 36.6; O2SAT 100
[2020-11-11 05:13] VITALS: BP 125/76; PULSE 78; RESP 16; TEMP 36.2; O2SAT 100
[2020-11-11 07:43] LABS: Glucose Point of Care 193 (65-105)
[2020-11-11 08:21] LABS: Lactic Acid Reflex 0.9 mmol/L (0.7-2.1)
[2020-11-11 08:23] LABS: Alanine Aminotransferase 154 U/L (4-50); Albumin Level 3.6 g/dL (3.5-5.1); Alkaline Phosphatase 78 U/L (38-126); Anion Gap 4 mmol/L (8-16); Aspartate Amino Transferase 128 U/L (17-59); Bilirubin,Total 1.1 mg/dL (0.2-1.3); Blood Urea Nitrogen 8 mg/dL (9-20); Calcium 8.7 mg/dL (8.4-10.2); Carbon Dioxide 29 mmol/L (22-30); Chloride 104 mmol/L (98-107); Estimated CRCL calculation 78 ml/min; Estimated Glomerular Filt Rate > 60; Glucose 237 mg/dL (75-110); Potassium 3.6 mmol/L (3.4-5.0); Sodium 137 mmol/L (137-145)
[2020-11-11] MEDS: levETIRAcetam 500 MG TABLET PO (09:08)
[2020-11-11] MEDS: ENOXAPARIN 40 MG/0.4 ML SYRINGE SUB-Q (09:08)
[2020-11-11] MEDS: POTASSIUM CHLORIDE 20 MEQ PACKET (FOR LIQUID) 40 MEQ PO (10:19)
[2020-11-11] MEDS: INSULIN GLARGINE (*BKC) 100 UNITS/ML 25 UNITS SUB-Q (10:21)
--- NOTE | 2020-11-11 11:16 | WPDNEUROPN ---
Progress Note: A&P Assessment and Plan (1) DKA (diabetic ketoacidoses): Code(s): E11.10 - Type 2 diabetes mellitus with ketoacidosis without coma Status: Acute (2) Seizure: Code(s): R56.9 - Unspecified convulsions Status: Acute Additional Plan Diabetes mellitus with ketoacidosis and seizure at the time of presentation to the emergency room 2nd time most likely related to hyperglycemia that is metabolic but again will continue the anticonvulsant at this particular time and subsequent follow-up we will see if he can take him off the anticonvulsant in the next 3 to 6 months as long as the good follow-up for the diabetes mellitus Review of Systems Review of Systems: All systems reviewed & are unremarkable except as noted in HPI and below Exam Const: General: cooperative, healthy appearing, comfortable, no acute distress and well developed Nutritional Appearance: well nourished Limitations: no limitations HENMT: Ears: hearing grossly normal bilaterally General nose exam: Normal external nose present and No nasal discharge present Face and sinus: normal facial exam Mouth: Yes Normal oral and palatal mucosa present Eyes: General: appearance normal, both eyes and all related structures Neck: Neck: full ROM Resp: Effort & Inspection: normal respiratory effort Auscultation: clear to auscultation bilaterally Cardio: Jugular venous distension: no JVD Rate: regular rate GI: Auscultation: normal bowel sounds Skin: General skin exam: no rashes or lesions noted Neuro: General: patient oriented x3 and gait normal Cranial nerves: Yes CN's II-XII intact bilaterally Cognition (Neuro): normal cognition Speech: normal speech Gait exam (Neuro): Normal gait present Motor exam (neuro): 5/5 motor strength present throughout Sensory Exam: normal sensation Deep tendon reflexes (DTR's): Right triceps reflex intensity grade: 1+, Left triceps reflex intensity grade: 1+, Rt Biceps (C5, C6): 1+, Left biceps reflex intensity grade: 1+, Right brachioradialis reflex intensity grade: 1+, Left brachioradialis reflex intensity grade: 1+, Right patellar reflex intensity grade: 1+, Left patellar reflex intensity grade: 1+, Right ankle reflex intensity grade: 1+ and Left ankle reflex intensity grade: 1+ Plantar Reflex Responses: downgoing: bilateral Psych: Appearance: grossly normal Objective Data Vital Signs Vital Signs: Vital Signs - 24 hr 11/10/20 14:43 11/10/20 20:00 11/10/20 21:03 Temperature 37.2 C 36.6 C Pulse Rate 89 93 93 Respiratory Rate 14 16 16 Blood Pressure 147/79 H 140/82 Pulse Oximetry 100 100 100 11/11/20 05:13 Temperature 36.2 C L Pulse Rate 78 Respiratory Rate 16 Blood Pressure 125/76 Pulse Oximetry 100 Intake/Output Intake/Output: Intake & Output 11/08/20 11/09/20 11/10/20 11/11/20 23:59 23:59 23:59 23:59 Intake Total 3000 2240 3820 780 Output Total 1850 4150 450 400 Balance 1150 -1910 3370 380 Meds/Results Medications: Active Medications Generic Name Dose Route Start Last Admin Trade Name Freq PRN Reason Stop Dose Admin Dextrose 12.5 gm 11/08/20 13:53 Dextrose 50% 25 Gm/50 Ml Syringe IV PUSH PRN PRN Hypoglycemia Protocol Enoxaparin Sodium 40 mg 11/10/20 09:00 11/11/20 09:08 Enoxaparin 40 Mg/0.4 Ml Syringe SUB-Q 40 mg DAILY CRYS Administration Glucagon 1 mg 11/08/20 13:53 Glucagon For Inj 1 Mg Vial IM PRN PRN Hypoglycemia Protocol Glucose 15 gm 11/08/20 13:53 Glucose Oral Gel 15 Gm Of Glucse In 37.5 Gm Tube PO PRN PRN Hypoglycemia Protocol Dextrose 1,000 mls @ 100 mls/hr 11/08/20 13:53 Dextrose 5% 1,000 Ml IVPB PRN PRN Hypoglycemia Protocol Sodium Chloride 1,000 mls @ 100 mls/hr 11/09/20 13:20 11/10/20 22:49 Normal Saline Iv IV CONT 100 mls/hr .Q10H CRYS Administration Insulin Aspart 4 - 8 units 11/08/20 17:00 11/11/20 09:07 Insulin Aspart (*Bkc) 100 Units/
[2020-11-11 12:45] LABS: Glucose Point of Care 276 (65-105)
[2020-11-11] MEDS: INSULIN ASPART (*BKC) 100 UNITS/ML SUB-Q (13:07)
--- NOTE | 2020-11-11 13:17 | PM.DS ---
DS: Admitting Diagnosis Admitting Diagnosis Admitting Diagnosis: Seizure DS: Discharge Diagnosis Discharge Diagnosis (1) Seizure: Code(s): R56.9 - Unspecified convulsions Status: Acute Assessment and Plan: On iv Keppra in the hospital, Neurology consultation see notes. Pt to transition to oral keppra and discharge on keppra with follow up with neurology. (2) DKA, type 1: Qualifiers: Diabetes mellitus complication detail: with coma Qualified Code(s): E10.11 - Type 1 diabetes mellitus with ketoacidosis with coma Code(s): E10.10 - Type 1 diabetes mellitus with ketoacidosis without coma Status: Deleted Assessment and Plan: Lantus at night, sugars are 118. Accucheck, SSI, DM education and DM diet. Hopeful DC today. hbaic is 12. Mother has history of DM. (3) Diabetes mellitus, new onset: Code(s): E11.9 - Type 2 diabetes mellitus without complications Status: Acute Assessment and Plan: New diagnosis (4) Dehydration: Code(s): E86.0 - Dehydration Status: Acute Assessment and Plan: Improved after hydration, creat is 1.2. (5) Lactic acidosis: Code(s): E87.2 - Acidosis Status: Resolved (6) Acute renal injury: Code(s): N17.9 - Acute kidney failure, unspecified Status: Resolved DS: Summary Hospital Course Hospital Course: 25 year old male who was diagnosed with diabetes 11/04/2020 on a visit to ER who left AMA who presented back to the ER after having a seizure at home. Newly diagnosed DM, hbaic is 12. Pt treated with iv keppra for? seizure disorder. pt to follow up the neurology.Pt to do better with his diabetes. Wcc slightly high uc is negative, infection is unlikley, wcc high likely secondary to stress response. Time Spent with Patient Time attestation: Total time spent providing and/or coordinating discharge services:40 minutes on day of dischrage Exam Const: General: cooperative and healthy appearing; No in distress Nutritional Appearance: overweight Orientation/consciousness: oriented to person HENMT: Head: normal to inspection Resp: Effort & Inspection: no respiratory distress Auscultation: no rhonchi and no wheezes Cardio: Rate: regular rate Rhythm: regular rhythm GI: Inspection: normal to inspection Auscultation: normal bowel sounds Neuro: General: oriented to person DS: Data Data Completed and Pending Labs on day of discharge: Labs from last 24 hours 11/11/20 11/11/20 11/11/20 12:35 07:55 07:55 Sodium 137 Potassium 3.6 Chloride 104 Carbon Dioxide 29 Anion Gap 4 L BUN 8 L Creatinine 1.20 Estim Creat Clear Calc 78 Estimated GFR > 60 Glucose 237 H POC Capillary Glucose 276 H Lactic Acid 0.9 Calcium 8.7 Total Bilirubin 1.1 AST 128 H ALT 154 H Alkaline Phosphatase 78 Total Protein 7.0 Albumin 3.6 11/11/20 11/10/20 11/10/20 07:36 20:23 16:26 Sodium Potassium Chloride Carbon Dioxide Anion Gap BUN Creatinine Estim Creat Clear Calc Estimated GFR Glucose POC Capillary Glucose 193 H 159 H 219 H Lactic Acid Calcium Total Bilirubin AST ALT Alkaline Phosphatase Total Protein Albumin Preliminary micro results at discharge 11/08/20 01:47 Blood Culture - Preliminary Blood 11/08/20 01:50 Blood Culture - Preliminary Blood Discharge Plan Discharge Attending physician on discharge: Radha Ochoa Consulting providers: Deisy Barnes ; Jones Lennon Riaz Discharging Clinician: Radha Ochoa Anticipated Discharge Date/Time: 11/11/20 13:13 Patient Disposition: Home, Self-Care Activity: as tolerated Diet: diabetic Discharge Instructions: Continue to watch blood sugars at home and take Lantus in the morning, follow DM diet Patient Instructions: Antibiotic Form Stand Alone Forms: General
== END 2020-11-11 13:40 | disposition home or self-care (01) | DRG 420 ==
LOC: ANHED 11-08 01:59 → ANHICU 11-08 11:16 → ANH2MED 11-09 04:27 → ANHICU 11-15 14:43
PROVIDERS: Internal Medicine; Admitting Provider Internal Medicine; Emergency Provider Emergency Medicine; PCP Family Medicine; Visit Provider Family Medicine
DX: E10.11 Type 1 diabetes mellitus with ketoacidosis with coma (principal); R56.9 Unspecified convulsions; N17.9 Acute kidney failure, unspecified; Z20.822 Contact with and (suspected) exposure to COVID-19; G93.41 Metabolic encephalopathy; E86.0 Dehydration
CPT/HCPCS: 36415; 36600; 70450; 71045; 80048; 80053; 80307; 81001; 82010; 82550; 82805; 82948; 83036; 83605; 83735; 84100; 84146; 85025; 85610; 85730; 87040; 87086; 93005; 95816; 96365; 96375; 99285; A9270; C9803; J1650; J1815; J1953; J2060; J3480; J7030; U0003; U0005

== ENCOUNTER 2020-11-15 03:40 | Emergency (ER) | payer OTHER, SELFPAY ==
--- NOTE | ~2020-11-15 | CT_ITS ---
EXAMINATION: CT brain wo con DATE: 11/15/2020 04:22 INDICATION: Seizure. Altered mental status. TECHNIQUE: Computed tomography (CT) of the head was performed without intravenous contrast. The mA wa s adjusted according to patient size. Iterative reconstruction technique was employed. Exam dose: 60 5.33 mGy-cm total exam DLP. COMPARISON: 11/08/2020 CT brain FINDINGS: Again noted are postoperative changes from right temporal parietal craniotomy. There is some anterior right ethmoid air cell opacification and moderate mucoperiosteal thickening of the right frontal sinus. The included paranasal sinuses and mastoid air cells are otherwise normally developed and aerated. No fracture or bone destruction of the cranial vault. No intracranial mass lesion or hemorrhage, midline shift or mass effect effect. Normal ventricular si ze. There is preservation of jacob-white matter differentiation. No subdural or epidural hematoma. IMPRESSION: Status post right temporal parietal craniotomy No acute finding or significant change since 11/08/2020 Reviewed, dictated and finalized at [facility]. Reviewed, dictated and finalized at [facility]. 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
--- NOTE | ~2020-11-15 | XR_ITS ---
XR chest 1V portable DATE: 11/15/2020 04:15 INDICATION: Seizure, altered mental status. TECHNIQUE: Portable upright AP chest on November 15, 2020 at 0418 hours COMPARISON: 11/08/2020 supine AP chest FINDINGS: There is mild infiltrate or atelectasis in the lower lung zones primarily. No pleural effus ion or pulmonary vascular congestion or pneumothorax. Heart size appears within normal limits conside ring magnification associated with AP projection. IMPRESSION: Mild infiltrate or atelectasis in the lower lung zones Reviewed, dictated and finalized at [facility]. 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
[2020-11-15 03:43] VITALS: BP 127/81; PULSE 95; RESP 20; TEMP 36.6; O2SAT 97
[2020-11-15 05:13] LABS: Add Urine Microscopic? YES; Appearance Urine Clear (Clear); Bilirubin Urine Negative (Negative); Blood Urine 1+ (Negative); Color Urine Yellow (Yellow); Glucose Urine UA 3+ mg/dL (Negative); Ketones Urine Negative (Negative); Leukocyte Esterase Ur Negative LEU/UL (Negative); Mucus Urine Rare /lpf; Nitrate Urine Negative (Negative); Protein Urine 1+ mg/dL (Negative); Specific Grav Ur 1.012 (1.001-1.035); Urobilinogen Urine Negative mg/dL (<2.0)
[2020-11-15 05:33] LABS: Basophils Absolute Auto 0.1 K/mm3 (0.0-0.1); Basophils Percent Auto 1.4 % (0.2-1.2); Eosinophils Absolute Auto 0.3 K/mm3 (0-0.3); Eosinophils Percent Auto 4.8 % (0-4.4); Hematocrit 33.3 % (42.0-52.0); Hemoglobin 11.1 g/dL (14.0-18.0); Immature Granulocyte Absolute 0.07 K/mm3 (0.00-0.031); Immature Granulocyte Percent A 1.1 % (0-0.5); Lymphocytes Absolute Auto 3.22 K/mm3 (0.9-3.2); Lymphocytes Percent Auto 49.5 % (18.3-44.2); Mean Corpuscular HGB Conc 33.3 g/dl (32-36); Mean Corpuscular Hemoglobin 23.8 pg (26-34); Mean Corpuscular Volume 71.3 fl (80-100); Monocytes Absolute Auto 0.9 K/mm3 (0.1-0.6); Monocytes Percent Auto 13.4 % (2.6-8.5); Neutrophils Percent Auto 29.8 % (45.5-73.1); Platelet Count Result 341 k/mm3 (150-375); Red Blood Count 4.67 M/mm3 (4.6-6.20); Red Cell Distribution Width 13.3 % (11.5-14.5); White Blood Count 6.5 K/mm3 (4.5-10.0)
[2020-11-15 05:38] VITALS: BP 134/74; PULSE 86; PULSE 87; RESP 12; O2SAT 99
[2020-11-15 05:46] LABS: Amphetamine Screen Urine Negative (Negative); Barbiturate Screen Urine Negative (Negative); Benzodiazepines Screen Urine Negative (Negative); Cannabinoid Screen Urine Negative (Negative); Cocaine Screen Urine Negative (Negative); Methadone Screen Urine Negative (Negative); Opiate Screen Urine Negative (Negative); Phencyclidine Screen Urine Negative (Negative)
[2020-11-15 05:47] LABS: Alanine Aminotransferase 122 U/L (4-50); Alkaline Phosphatase 74 U/L (38-126); Anion Gap 6 mmol/L (8-16); Aspartate Amino Transferase 50 U/L (17-59); Bilirubin,Total 0.9 mg/dL (0.2-1.3); Blood Urea Nitrogen 15 mg/dL (9-20); Calcium 9.1 mg/dL (8.4-10.2); Carbon Dioxide 28 mmol/L (22-30); Chloride 103 mmol/L (98-107); Estimated CRCL calculation 96 ml/min; Estimated Glomerular Filt Rate > 60; Glucose 224 mg/dL (75-110); Potassium 3.4 mmol/L (3.4-5.0); Sodium 137 mmol/L (137-145)
[2020-11-15 05:56] LABS: Atypical Lymphocytes Present; Platelet Estimate Adequate (Adequate)
[2020-11-15 06:02] LABS: Ethanol < 10 mg/dL (<10)
--- NOTE | 2020-11-15 06:33 | ED.SEIZURE ---
HPI - Seizure General Chief Complaint: Seizure Stated Complaint: seizures Time Seen by Provider: 11/15/20 03:41 History of Present Illness HPI Narrative: Patient is a 25-year-old male sent into the ER for concerns of seizure. Patient looking off and not acting like himself. He follows commands but is not talking. EMS reports he believes he has history of seizures. No reports of drug use. No evidence of trauma. Seizure History: Yes Related Data Allergies Allergy/AdvReac Type Severity Reaction Status Date / Time blueberry Allergy Severe Swelling Verified 11/15/20 03:50 of Lip/Tongue/Throat Review of Systems Review of Systems: ROS unobtainable: Yes unobtainable due to mental status PMFSH Past Medical History Medical History (Updated 11/15/20 @ 06:39 by Peter Maldonado MD) Brain aneurysm Diabetes mellitus, new onset Seizure Surgical History Surgical History H/O brain surgery Likely due to aneurysm repair around age of 18 Family History Family History Other Unknown family medical history Social History Social History Social History: The patient's mother reported ER staff that she did not know of the patient having any history of alcohol or drug use. Smoking status: Current every day smoker Alcohol intake: current Substance use: current Substance use type: marijuana Gender identity (if verbalized by the patient): Male Sexual Orientation (if Verbalized by the Patient): Straight or Heterosexual Spiritual care concerns: No Exam Narrative: Exam Narrative: GENERAL: Well-appearing, well-nourished, and in no acute distress. HEAD: Normocephalic, atraumatic. EYES: PERRLA and EOMI. CHEST: Clear to auscultation. No respiratory distress. HEART: Regular rate and rhythm. Normal peripheral pulses. ABDOMEN: Soft, nontender, nondistended. EXTREMITIES: Normal range of motion. No edema. SKIN: Warm, dry, no rash. NEURO: Awake alert, follows commands, no facial droop. PSYCH: Normal mood and affect. Course Course Emergency Course: Patient is now awake alert and oriented x3. He reports he has history of seizures. Reports he took his medication yesterday but he does not know the name of the medication. Ulises is listed in his history. Recommend he go home and take his medication patient verbalized understanding. Discussed he should not operate a vehicle until he is 6 months seizure-free. Vital Signs Vital signs: Vital Signs Temperature 97.9 F 11/15/20 03:43 Pulse Rate 95 11/15/20 03:43 Respiratory Rate 20 11/15/20 03:43 Blood Pressure 127/81 11/15/20 03:43 Pulse Oximetry 97 11/15/20 03:43 Temperature 97.9 F 11/15/20 03:43 Pulse Rate 87 11/15/20 05:38 Respiratory Rate 12 11/15/20 05:38 Blood Pressure 134/74 11/15/20 05:38 Pulse Oximetry 99 11/15/20 05:38 MDM - Seizure Lab Data Result diagrams: 11/15/20 05:13 11/15/20 05:13 Labs: Lab Results 11/15/20 11/15/20 11/15/20 Range/Units 05:02 05:02 05:13 WBC 6.5 (4.5-10.0) K/mm3 RBC 4.67 (4.6-6.20) M/mm3 Hgb 11.1 L (14.0-18.0) g/dL Hct 33.3 L (42.0-52.0) % MCV 71.3 L (80-100) fl MCH 23.8 L (26-34) pg MCHC 33.3 (32-36) g/dl RDW 13.3 (11.5-14.5) % Plt Count 341 (150-375) k/mm3 MPV 9.0 (7.4-10.4) fl Immature Gran % (Auto) 1.1 H (0-0.5) % Neut % (Auto) 29.8 L (45.5-73.1) % Lymph % (Auto) 49.5 H (18.3-44.2) % [place] % (Auto) 13.4 H (2.6-8.5) % Eos % (Auto) 4.8 H (0-4.4) % Baso % (Auto) 1.4 H (0.2-1.2) % Lymph # (Auto) 3.22 H (0.9-3.2) K/mm3 [place] # (Auto) 0.9 H (0.1-0.6) K/mm3 Eos # (Auto) 0.3 (0-0.3) K/mm3 Baso # (Auto) 0.1 (0.0-0.1) K/mm3 Abs Immat Gran (auto) 0.07 H (0.00-0.031) K/mm3 Absolute Neuts (auto) 2.0
[2020-11-15 06:56] VITALS: BP 132/99; PULSE 72; RESP 16; O2SAT 97
== END 2020-11-15 06:57 | disposition home or self-care (01) ==
PROVIDERS: Emergency Provider Emergency Medicine; PCP Family Medicine
DX: R56.9 Unspecified convulsions (principal); E11.9 Type 2 diabetes mellitus without complications; F17.200 Nicotine dependence, unspecified, uncomplicated; Z79.4 Long term (current) use of insulin
CPT/HCPCS: 36415; 70450; 71045; 80053; 80307; 81001; 85025; 99284

== ENCOUNTER 2022-01-16 12:01 | Emergency (ER) | payer OTHER, SELFPAY ==
[2022-01-16 12:19] VITALS: BP 131/83; PULSE 73; RESP 18; TEMP 36.1; O2SAT 100
== END 2022-01-16 15:25 | disposition left against medical advice (07) ==
LOC: ANHED 15:23
DX: Z53.21 Procedure and treatment not carried out due to patient leaving prior to being seen by health care provider (principal)
CPT/HCPCS: 99199

== ENCOUNTER 2023-07-01 13:37 | Emergency (ER) | payer OTHER, SELFPAY ==
--- NOTE | 2023-07-01 13:44 | ED.MALEGU ---
HPI - Male Genitourinary General Chief complaint: Unspecified Stated complaint: Std Test,irritation Time Seen by Provider: 07/01/23 13:44 Source: patient Mode of arrival: ambulatory Limitations: no limitations History of Present Illness HPI Narrative: [place] is a 28-year-old male patient presenting to the clinic today with complaints of penile irritation and is requesting STD testing. He reports he is having intercourse last night with his girlfriend who is also here today to be tested for STDs and he noted some irritation to his penis. He states irritation is improving. Related Data Allergies Allergy/AdvReac Type Severity Reaction Status Date / Time blueberry Allergy Severe Swelling Verified 11/15/20 03:50 of Lip/Tongue/Throat Review of Systems Review of Systems: Pertinent positives per HPI. Patient denies any fever, chills, rash, headache, visual changes, dizziness, cough, runny nose, sore throat, shortness of breath, chest pain, palpitations, nausea, vomiting, diarrhea, constipation, abdominal pain, or any urinary issues. PMF Past Medical History Medical History Brain aneurysm Diabetes mellitus, new onset Seizure Surgical History Surgical History H/O brain surgery Likely due to aneurysm repair around age of 18 Family History Family History Other Unknown family medical history Social History Social History Social History: The patient's mother reported ER staff that she did not know of the patient having any history of alcohol or drug use. Smoking status: Current every day smoker Alcohol intake: current Substance use: current Substance use type: marijuana Gender identity (if verbalized by the patient): Male Sexual Orientation (if Verbalized by the Patient): Straight or Heterosexual Spiritual care concerns: No Comments At the time of my signature, I reviewed and agree with the nursing past medical, surgical, social, and family history. There is no relevant family history pertinent to the patient complaint. Exam Narrative: General: Well-developed, well nourished, in no apparent distress. Head: Normocephalic, atraumatic. Cardio: Regular rate and rhythm, s1 and s2 normal, no murmur appreciated. Resp: Clear to auscultation bilaterally, no rhonchi, rales, wheezing or rubs. Abdomen: Soft, pliable, bowel sounds present in all quadrants, non-tender to palpation, no organomegly, no CVAT tenderness. : Deferred Course Course Emergency Course: Portions of this record may have been created with voice recognition software. Level of Care: Express Care Visit Vital Signs Vital signs: Vital signs reviewed MDM - Male Genitourinary MDM Narrative Medical decision making narrative: At the time of visit patient is resting on the exam table. Dirty urine was collected to test for STDs. Patient declined genital exam. Supportive measures were discussed with the patient he voiced understanding discharge instructions and agrees to treatment plan. Differential Diagnosis Differential diagnosis: Likely urethritis, epididymitis and other (STD) Discharge Plan Discharge Clinical Impression: Screen for STD (sexually transmitted disease) Patient Disposition: Home, Self-Care Condition: Stable Instructions: Antibiotic Form, Sexually Transmitted Diseases (ED), Safe Sex Practices (ED) Additional Instructions: We have tested you for STIs in the clinic today. Avoid any sexual activity- includes oral, anal, or vaginal intercourse until you get results back and have completed any additional recommended treatment regimens. We will contact you if testing is positive and make sure your treatment was appropriate for the type of STI. If symptoms
[2023-07-01 14:03] VITALS: BP 141/84; PULSE 70; RESP 20; TEMP 36.5; O2SAT 98
[2023-07-01 21:15] LABS: Trichomonas Vag PCR NOT DETECTED (NOT DETECTE)
[2023-07-01 21:47] LABS: Chlamydia trachomatis NOT DETECTED (NOT DETECTE); Neisseria gonorrhoeae PCR NOT DETECTED (NOT DETECTE)
== END 2023-07-01 14:18 | disposition home or self-care (01) ==
PROVIDERS: Emergency Provider Nurse Practitioner Family
DX: Z11.3 Encounter for screening for infections with a predominantly sexual mode of transmission (principal); G40.909 Epilepsy, unspecified, not intractable, without status epilepticus; E11.9 Type 2 diabetes mellitus without complications; F17.200 Nicotine dependence, unspecified, uncomplicated; F12.90 Cannabis use, unspecified, uncomplicated
CPT/HCPCS: 87491; 87591; 87661; 99213; G0463

== ENCOUNTER 2025-07-15 00:55 | Emergency (ER) | payer SELFPAY ==
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
[2025-07-15 00:55] VITALS: BP 160/87; PULSE 71; RESP 14; TEMP 36.8; O2SAT 98
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
[2025-07-15] MEDS: KETOROLAC 30 MG/ML VIAL (*BKC) IM (01:55)
== END 2025-07-15 02:45 | disposition home or self-care (01) ==
PROVIDERS: Emergency Provider Student in an Organized Health Care Education/Training Program
DX: S70.01XA Contusion of right hip, initial encounter (principal); S90.01XA Contusion of right ankle, initial encounter; S80.11XA Contusion of right lower leg, initial encounter; E11.9 Type 2 diabetes mellitus without complications; G40.909 Epilepsy, unspecified, not intractable, without status epilepticus; F17.200 Nicotine dependence, unspecified, uncomplicated; Z79.4 Long term (current) use of insulin; Z79.899 Other long term (current) drug therapy; V03.00XA Pedestrian on foot injured in collision with car, pick-up truck or van in nontraffic accident, initial encounter
CPT/HCPCS: 73502; 73590; 73610; 96372; 99284; J1885